=== PATIENT | male | born 1980 | race Caucasian/White ===

== ENCOUNTER 2016-12-24 17:38 | Inpatient (IN) | payer OTHER ==
--- NOTE | ~2016-12-24 | PA ---
Unit #: [id number] #: [id number] Patient: PEDRO PHAM [id number] [facility] [address] [place] [address] [id number] MR#: [id number] NAME: PEDRO PHAM ROOM: [facility] Age: 36 Sex: M Admission Date: 12/24/2016 : 1980 Date of Assessment: 12/25/2016 Attending Physician: Sunil Gusman M.D. Admitting Physician: Sunil Gusman M.D. PSYCHIATRIC ASSESSMENT INFORMANT The patient reliability, fair; chart reliability, good. CHIEF COMPLAINT Depression. HISTORY OF PRESENT ILLNESS Mr. Pedro Pham is a 36-year-old male, presented with the above-mentioned complaint, seen on . The patient presented due to psychotic symptom reported auditory hallucination threatening to kill him. The patient reported physical sensation of being stabbed with a needle. The patient reported responding to internal stimuli, arguing with the hospital room television. The patient reported having auditory hallucination, visual hallucination, paranoia, disorganized behavior, disorganized thought process, but denied any thoughts of harming self. The patient tested positive for amphetamine, needing inpatient admission at this time for psychiatric stabilization. PAST PSYCHIATRIC HISTORY Remarkable for history of previous treatment at [facility] in the past. Details unknown at this time. FAMILY HISTORY AND SOCIAL HISTORY The patient's family history is unremarkable. No known history of any abuse. MEDICAL HISTORY Unremarkable for any chronic medical condition. Musculoskeletal; muscle strength and tone, no atrophy or abnormal movement. Gait normal. MEDICATION HISTORY None. ALLERGIES No known drug allergies. SUBSTANCE ABUSE HISTORY The patient reported using methamphetamine. REVIEW OF SYSTEMS HEENT: Eyes, clear. Ears, nose, mouth, and throat; clear. CARDIOVASCULAR: Unremarkable. RESPIRATORY: Unremarkable. GI: Unremarkable. Unit #: [id number] #: [id number] Patient: PEDRO PHAM : Unremarkable. SKIN: Unremarkable. LYMPH NODE: Unremarkable. NEUROLOGIC: Unremarkable. ENDOCRINE: Unremarkable. HEMATOLOGIC: Unremarkable. ALLERGIC/IMMUNOLOGIC: Unremarkable. MUSCULOSKELETAL: Muscle strength and tone, no atrophy or abnormal movement. Gait normal. MENTAL STATUS EXAMINATION CONSTITUTIONAL: Measurement of vital signs; temperature is 98.0, pulse 106, respirations 18, blood pressure 135/108, height 5 feet 11 inches, and weight 200 pounds. GENERAL APPEARANCE: The patient dressed casually. The patient did not show any facial deformity. MUSCULOSKELETAL: Please see above. PSYCHIATRIC EXAMINATION Description of speech; regular rate, normal volume. Description of thought process, goal directed. Description of association, intact. Description of abnormal psychotic thinking, auditory hallucination, visual hallucination, guarded paranoid, mood lability, but denied any thoughts of harming self or others. Description of the patient's judgment, concerning everyday activity, poor. Social situation, poor. Concerning psychiatric condition, poor. Complete mental status examination; oriented in time, place, and person. Attention span and concentration, poor. Language, able to name object, repeat phrases. Fund of knowledge, fair. Vocabulary, fair. Mood and affect, sad and dysphoric. Insight and judgment, fair to poor. ASSETS AND LIABILITIES Assets; the patient is articulate, able to take care of his ADL. Liability; depression, psychosis. ADMITTING DIAGNOSES Psychiatric: 1. Psychosis, not otherwise specified, F29.0. 2. Amphetamine use disorder, severe, F15.20. Secondary diagnosis: Deferred. Medical diagnosis: None. Stressors: Psychosocial stressors. PSYCHIATRIC PLAN AND TREATMENT GOAL AND DISCHARGE PLAN 1. Advised to admit the patient on the inpatient unit. Provide safe, supportive, and structured environment. 2. Ordered labs; CBC, CMP, UA, and UDS. 3. Advised special observation for psychosis and advised Zyprexa 10 mg b.i.d. for psychosis. The patient to attend all the programing on the inpatient unit, group therapy, individual therapy, medication management. 4. Treatment goal; to attain euthymic mood and control psychotic symptom. 5. Discharge plan; plan to stabilize the patient and consider followup in outpatient program. ESTIMATED LENGTH OF STAY Unit #: [id number] #: [id number] Patient: PEDRO PHAM 3 to 5 days. Dictated by... George Burdick/bobo TD: 12/26/2016 03:52 JOB #: [id number] PSYCHIATRIC ASSESSMENT Page 1 of 1 X Sunil Gusman MD X PSYCHIATRIC ASSESSMENT
--- NOTE | ~2016-12-24 | DS ---
Unit #: [id number] #: [id number] Patient: TEJ GALVAN [id number] [facility] [address] [place] [address] [id number] MR#: [id number] NAME: TEJ GALVAN ROOM: [facility] Age: 36 Sex: M Admission Date: 12/24/2016 : 1980 Discharge Date: 12/26/2016 Attending Physician: Sunil Gusman M.D. DISCHARGE SUMMARY REASON FOR ADMISSION Depression. DIAGNOSTIC STUDIES LABORATORY RESULTS: Unremarkable. HOSPITAL COURSE The patient was admitted to inpatient unit on 12/24/2016 and discharged on 12/26/2016. The patient was treated on the inpatient unit with group therapy, individual therapy, and medication management. The patient responded well with the above modalities of treatment and therapeutic protocol. Subsequently, the patient was discharged with a plan to follow up in outpatient clinic. DISCHARGE MEDICATIONS None. DISCHARGE DIAGNOSES Psychiatric: 1. Psychosis, not otherwise specified, F29.0. 2. Amphetamine use disorder, severe, F15.20. Secondary diagnosis: Deferred. Medical diagnosis: None. Stressors: Psychosocial stressors. DISCHARGE INSTRUCTIONS The patient is to follow up in outpatient clinic as per social services aide. CONDITION ON DISCHARGE The patient was pleasant and cooperative. Denied any psychotic symptom or any suicidal ideation. PROGNOSIS Guarded. DIET AND ACTIVITY As tolerated. Dictated by... Sunil Gusman M.D. Unit #: [id number] #: [id number] Patient: TEJ GALVAN SZC/modl TD: 12/26/2016 20:52 JOB #: [id number] DISCHARGE SUMMARY Page 1 of 1 X Sunil Gusman MD X DISCHARGE SUMMARY
--- NOTE | ~2016-12-24 | HP ---
Unit #: [id number] #: [id number] Patient: PEDRO GALVAN [id number] [facility] [address] [place] [address] [id number] I MR#: [id number] NAME: PEDRO GALVAN ROOM: [facility] Age: 36 Sex: M Admission Date: 12/24/2016 : 1980 Attending Physician: Sunil Gusman M.D. Admitting Physician: Sunil Gusman M.D. HISTORY AND PHYSICAL HISTORY OF PRESENT ILLNESS Pedro is a 36 year old admitted to [address] [place] [address] after reporting auditory hallucinations. He is a poor historian so his history is taken from his chart. PAST MEDICAL HISTORY Nothing significant. PAST SURGICAL HISTORY Nothing reported. ALLERGIES No known drug allergies. SOCIAL HISTORY He denies cigarettes, alcohol and illicit drug use. FAMILY HISTORY Medically noncontributory. REVIEW OF SYSTEMS He does not answer questions appropriately. There are no reports of nausea, vomiting or diarrhea. He has had no cough or increased temperature. CURRENT MEDICATIONS 1. Nicotine patch 21 mg daily 2. Zyprexa 10 mg b.i.d. 3. Loperamide p.r.n. 4. Milk of Magnesia p.r.n. 5. Maalox p.r.n. 6. Tylenol p.r.n. PHYSICAL EXAMINATION GENERAL: Alert, well-nourished, in no apparent distress. VITAL SIGNS: Blood pressure 134/100, heart rate 80, respirations 16, temperature 98.6. WEIGHT: 200 pounds. HEIGHT: 5'11". SKIN: Warm and dry without rash or lesion. HEENT: Normocephalic. TMs not viewed. Oral and nasal passages clear. Conjunctivae clear. Pupils equal, round and reactive to light and Unit #: [id number] #: [id number] Patient: PEDRO GALVAN accommodation. Extraocular movements intact. NECK: Supple without lymphadenopathy or thyromegaly. HEART: Regular rate and rhythm without murmur. LUNGS: Clear. ABDOMEN: Soft, nontender. : Not done. EXTREMITIES: No evidence of cyanosis, clubbing or edema. Moves all extremities without focal deficit. NEUROLOGICAL: Unable to complete extended exam. He does move all extremities without focal deficit. Hand bus and rail operator is equal and gait is normal. IMPRESSION Psychiatric admission. RECOMMENDATIONS PSYCHIATRIC: Per psychiatrist. MEDICAL: I see no contraindications to participating in facility's activities. MEDICAL PROGNOSIS Good. MEDICAL CONDITION Stable. Dictated by... Nithya Leary P.A.-C. for George Monroy/guero TD: 12/25/2016 19:48 JOB #: [id number] HISTORY AND PHYSICAL X Nithya Leary X HISTORY AND PHYSICAL
[2016-12-25 09:53] LABS: THYROID STIMULATING HORMONE 0.75 uIU/ml (0.34-5.60)
[2016-12-25 10:00] LABS: FREE THYROXIN (T4) 0.76 ng/dL (0.58-1.64)
== END 2016-12-26 11:20 | DRG 885 ==
LOC: P1S 17:38 → POF 17:53 → P1S 17:55
PROVIDERS: Psychiatry & Neurology Psychiatry
DX: F29 Unspecified psychosis not due to a substance or known physiological condition (principal); F15.20 Other stimulant dependence, uncomplicated
CPT/HCPCS: 84439; 84443